=== PATIENT | male | born 1975 ===

== ENCOUNTER 2018-10-15 12:42 | Outpatient (CLI) | payer BC | END 2018-10-15 12:43 | disposition home or self-care (01) | LOC: ULT 12:42 | PROVIDERS: ATTEND Family Medicine | DX: I95.1 Orthostatic hypotension (principal); Z86.79 Personal history of other diseases of the circulatory system | CPT/HCPCS: 93306 ==

== ENCOUNTER 2018-10-15 13:57 | Outpatient (CLI) | payer OTHER ==
--- NOTE | 2018-10-15 15:24 | CT ---
CT CORONARY ARTERY CALCIUM SCORING: HISTORY: Family history of heart disease. The patient has hypercholesterolemia. FINDINGS: No coronary artery calcifications are seen. The total coronary artery calcium score is 0. No pleural or pericardial effusions are seen. The visualized lung cobian are unremarkable. The bony structures are unremarkable as well. IMPRESSION: Total coronary artery calcium score is 0. POS: OFF
== END 2018-10-15 13:58 | disposition home or self-care (01) ==
LOC: BICCT 13:57
PROVIDERS: ATTEND Family Medicine
DX: E78.00 Pure hypercholesterolemia, unspecified (principal); E66.9 Obesity, unspecified; Z82.49 Family history of ischemic heart disease and other diseases of the circulatory system
CPT/HCPCS: 75571